=== PATIENT | female | born 1970 | race African-American/Black ===

== ENCOUNTER 2016-08-30 16:52 | Emergency (ER) | payer OTHER ==
[~2016-08-30] VITALS: Ht 152.4 cm; Wt 74.8 kg
[~2016-08-30 16:52] MED LIST: IBUP200T77 PO; METH-37 PO; NAPR500T PO
[2016-08-30 16:55] VITALS: BP 121/76
--- NOTE | 2016-08-30 17:31 | PHYS DOC ---
Past Medical History Past Medical History: Other Additional Past Medical Histor: ovarian cysts Past Surgical History: Other Additional Past Surgical Histo: LEEP Alcohol Use: Occasionally Drug Use: None Adult General Chief Complaint Chief Complaint: COUGH HPI HPI Patient is a 46 year old female presents emergency department stating that she has had a cough and slight congestion for the last 2 days. She denies any fever , chills or any nausea vomiting. She does state that occasionally she has a cream colored productive cough. She denies any shortness of air difficulty breathing. She denies any history of smoking. She states that she took cold and flu medication [id number] last night to help her sleep. She states that she had also tried it again today without much relief. Review of Systems Review of Systems Constitutional: Denies fever or chills [] Eyes: Denies change in visual acuity, redness, or eye pain [] HENT: Denies nasal congestion or sore throat [] Respiratory: cough denies shortness of breath [] Cardiovascular: No additional information not addressed in HPI [] GI: Denies abdominal pain, nausea, vomiting, bloody stools or diarrhea [] : Denies dysuria or hematuria [] Musculoskeletal: Denies back pain or joint pain [] Integument: Denies rash or skin lesions [] Neurologic: Denies headache, focal weakness or sensory changes [] Allergies Allergies Allergies Coded Allergies Type Severity Reaction Last Updated Verified metoclopramide HCl Allergy Severe seizures 06/19/13 Yes ondansetron HCl Allergy Intermediate hives 06/19/13 Yes tramadol Allergy Intermediate nausea 08/30/16 Yes Physical Exam Physical Exam Constitutional: Well developed, well nourished, no acute distress, non-toxic appearance. [] HENT: Normocephalic, atraumatic, bilateral external ears normal, oropharynx moist, no oral exudates, nose normal. Bilateral tympanic membranes appear to be normal. Throat with slight postnasal drip noted no erythematous no exudate noted. No anterior cervical adenopathy is noted. Eyes: PERRLA, EOMI, conjunctiva normal, no discharge. [] Neck: Normal range of motion, no tenderness, supple, no stridor. [] Cardiovascular:Heart rate regular rhythm, no murmur [] Lungs & Thorax: Bilateral breath sounds clear to auscultation [] Skin: Warm, dry, no erythema, no rash. [] Back: No tenderness Extremities: No tenderness, no cyanosis, no clubbing, ROM intact, no edema. [] Neurologic: Alert and oriented X 3, normal motor function, normal sensory function, no focal deficits noted. [] Psychologic: Affect normal, judgement normal, mood normal. [] Current Patient Data Vital Signs Vital Signs Date Time Temp Pulse Resp B/P Pulse Ox O2 Delivery O2 Flow Rate FiO2 08/30/16 16:55 98.0 83 20 99 Room Air 98.0 EKG EKG [] Radiology/Procedures Radiology/Procedures [] Course & Med Decision Making Course & Med Decision Making Pertinent Labs and Imaging studies reviewed. (See chart for details) Patient will be instructed to use Mucinex DM [id number] to help with cough and congestion and help with providing drainage. Patient will also be provided with a pro-air to help with opening up the airways for coughing. Signs and symptoms to return back to emergency department as been provided. Patient agrees with discharge instructions treatment regimens and follow-up recommendations. [] Dragon Disclaimer Dragon Disclaimer This electronic medical record was generated, in whole or in part, using a voice recognition dictation system. Departure Departure Impression: Primary Impression: URI (upper respiratory infection) Disposition: HOME, SELF-CARE Condition: STABLE Referrals: NO PCP (PCP) Patient Instructions: Upper Respiratory Infection, Adult, [id number] Additional Instructions: Activity as tolerated. Mucinex DM [id number] for cough and congestion. Drink plenty of fluids. Medication as prescribed. Follow-up with the primary care physician next 3-5 days. Return back to emergency department for signs and symptoms of become worse. KATHIA LEIGH APRN Aug 30, 2016 17:31
[2016-08-30] MEDS ORDERED: PROAIR HFA8.5 GM INH (17:32)
== END 2016-08-30 17:50 | disposition home or self-care (01) ==
LOC: ER 16:52
DX: J06.9 Acute upper respiratory infection, unspecified (principal); Z88.6 Allergy status to analgesic agent; Z88.8 Allergy status to other drugs, medicaments and biological substances
CPT/HCPCS: 99283

== ENCOUNTER 2017-07-01 20:55 | Emergency (ER) | payer SELFPAY, OTHER | END 2017-07-01 21:55 | disposition home or self-care (01) | LOC: ER 20:55 | DX: S63.501A Unspecified sprain of right wrist, initial encounter (principal); Z88.8 Allergy status to other drugs, medicaments and biological substances; Z88.5 Allergy status to narcotic agent; V49.60XA Unspecified car occupant injured in collision with unspecified motor vehicles in traffic accident, initial encounter; Y93.89 Activity, other specified; Y92.410 Unspecified street and highway as the place of occurrence of the external cause; Y99.8 Other external cause status | CPT/HCPCS: 73110; 99284 ==

== ENCOUNTER 2017-10-14 19:20 | Emergency (ER) | payer SELFPAY, OTHER ==
[2017-10-14] MEDS: LIDOCAINE WITH 8.4% SOD BICARB 3 ML DISP.SYRIN. INJ (20:00)
== END 2017-10-14 20:25 | disposition home or self-care (01) ==
LOC: ER 19:20
DX: L02.31 Cutaneous abscess of buttock (principal); Z79.899 Other long term (current) drug therapy; Z88.5 Allergy status to narcotic agent; Z88.8 Allergy status to other drugs, medicaments and biological substances
CPT/HCPCS: 10060; 99283